=== PATIENT | male | born 1970 | race Hispanic/Latino ===

== ENCOUNTER 2017-06-29 22:59 | Emergency (ER) | payer SELFPAY ==
[~2017-06-29] VITALS: Ht 162.6 cm; Wt 67.0 kg
[~2017-06-29 22:59] MED LIST: NO CURRENT MEDS
[2017-06-29 23:10] VITALS: BP 130/60; PULSE 85; RESP 17; O2SAT 99
--- NOTE | 2017-06-29 23:15 | ED.REPORT ---
HPI-General Illness Date of Service Jun 29, 2017 ED Provider: Sekou Sanchez DO Pt is an otherwise healthy 47 year old male who presents to the ED via EMS for difficulty breathing onset prior to arrival. He c/o associated anxiety and stress. He denies cough and SOB. Pt reports that he was a former smoker. The pt was watching TV when he felt like he was unable to breath. Nursing Notes Stated Complaint: ANXIETY, SHORTNESS OF BREATH Chief Complaint: Respiratory Distress Nursing Notes Reviewed: Yes Allergies: Coded Allergies: Contrast Media (Unverified Allergy, Severe, SNEEZING,ITCHING,FACIAL SWELLING,SOB, 05/06/15) Miscellaneous Medications ([No Current Meds]) General Time Seen by MD: 23:14 Chief Complaint Breathing problem Hx Obtained From: Patient, EMS Arrived By: Ambulance Sudden in Onset?: Yes Onset Occurred: Just prior to arrival Symptom Duration: Duration unknown Severity: Current: No pain currently Severity: Maximum: No pain Recent Healthcare: No recent doctor visit, No recent hospitalization Similar Sx Previous: No Past Medical History Past Medical History Umbilical and bilateral inguinal hernia Past Surgical History Denies Family History Denies Smoking History Former Smoker Social History Alcohol Use: "Social" Ambulatory Status Independent Review of Systems + difficulty breathing Full Review of Systems Respiratory: Denies: Non-productive cough, Shortness of breath Psychiatric: Reports: Anxiety, Stress Complete sys rev & neg: except as marked. Physical Exam Vital Signs Vital Signs Date Time Temp Pulse Resp B/P Pulse Ox O2 Delivery O2 Flow Rate FiO2 06/30/17 03:49 70 15 98 Room Air 06/30/17 02:21 73 14 106/65 98 Room Air 06/30/17 01:34 82 16 127/66 97 Room Air 06/30/17 00:10 36.8 88 22 133/63 95 Room Air 06/29/17 23:10 36.8 85 17 130/60 99 Room Air Initial VS: Reviewed Head / Eyes: Atraumatic, Normocephalic Neck: Supple, Full range of motion Respiratory: Breath sounds normal, Clear to auscultation, No respiratory distress Abdomen / GI: Soft, Non-tender Extremities: Vascular intact, Neuro intact Skin: Warm, Dry, No cyanosis Neurologic: Alert, Oriented, Nonfocal Psychiatric: Mood/affect normal, Behavior normal General/Constitutional: Awake, Alert, No acute distress Behavior: Positive: Anxious Head / Eyes: Atraumatic, Normocephalic Cardiovascular: Heart rate NL, Regular rhythm, Heart sounds NL PERC met. Interpretation & Diagnostics Lab Results Interpretation Result Diagram: 06/30/17 0101 06/30/17 0101 Test 06/30/17 01:01 06/30/17 03:05 White Blood Count 8.6th/mm3 (3.8-10.1) Red Blood Count 4.45mil/mm3 (4.40-5.80) Hemoglobin 13.4g/dL (13.8-17.2) Hematocrit 39.7% (41.0-50.0) Mean Corpuscular Volume 89.2fL (81-100) Mean Corpuscular Hemoglobin 30.1pg (27.0-35.0) Mean Corpuscular Hemoglobin Concent 33.8% (32.0-37.0) Red Cell Distribution Width 12.6% (12.3-15.4) Platelet Count 344bil/L (150-400) Neutrophils (%) (Auto) 65.5% (40-74) Lymphocytes (%) (Auto) 20.5% (14-46) Monocytes (%) (Auto) 11.6% (4-12) Eosinophils (%) (Auto) 1.7% (0-5) Basophils (%) (Auto) 0.6% (0-3) D-Dimer < 0.50mg/L FEU (<0.50) Sodium Level 137mEq/L (134-144) Potassium Level 4.0mEq/L (3.5-5.2) Chloride Level 101mEq/L (97-108) Carbon Dioxide Level 21mmol/L (18-29) Blood Urea Nitrogen 19mg/dL (6-24) Creatinine 0.81mg/dL (0.76-1.27) Estimat Glomerular Filtration Rate 110mL/min (>59) Glucose Level 108mg/dL (60-99) Calcium Level 8.7mg/dL (8.5-10.1) Total Bilirubin 0.3mg/dL (0.0-1.2) Aspartate Amino Transf (AST/SGOT) 13U/L (0-50) Alanine Aminotransferase (ALT/SGPT) 14U/L (0-44) Alkaline Phosphatase 66U/L (25-150) Total Protein 6.8g/dL (6.4-8.4) Albumin 4.1g/dL (3.4-5.0) Hold Shrestha Top Tube Received (Received) Troponin T 0.010ug/L (0.0-0.011) ECG Interpretation ECG Interpretation: Sinus rhythm with a rate of 76 Benign repol No reciprocol changes or signs of DC Time: 00:47 Interpreted by: ED physician X-Ray Chest Interpretation Chest Xray Interpretation: No infiltrates No pneumothorax No pulmonary edema View: Portable, 1 view Interpretation / Wet Read by: Wet read ED physician Re-Eval/Medical Decision Med Decision/Clinical Course 47-year-old male presents with classic anxiety and associated tightness in his chest. He is very worked up about a new job as well as family. His heart score is 0. Pulmonary emboli rule out criteria have been met. PE and acute coronary syndrome very unlikely based on history and physical. EKG shows sinus rhythm with normal benign early repolarization. No reciprocal changes or evidence of ischemia or infarction or injury pattern. D-dimer was negative. Chest x-ray was normal. A single dose of lorazepam was given with prompt relief of symptoms. Assessment anxiety with chest pain. Plan I will place him on hydroxyzine as needed for anxiety symptoms. Routine sedative warnings. We will get a 12 troponin that is normal based on his heart score is safely discharged with outpatient follow-up. He will not drive tonight she is receive sedating medications. Source of Hx: Old records Counseled Regarding: Diagnosis, Lab results, Need for follow-up, When/why to return to ED Discharge & Departure Primary Impression: Anxiety Additional Impression: Chest pain Chest pain type: chest pain on breathing Qualified Code: R07.1 - Chest pain on breathing Disposition: Home Discharge Condition All VS Reviewed: Yes Condition: Stable Patient Instructions: Anxiety (GEN), Chest Pain (ED) Additional Instructions: The EKG, chest x-ray and electrocardiogram were normal. Laboratory work is normal. Blood clot blood test was negative. Blood clot and acute coronary syndrome essentially ruled out. You are suffering from anxiety. First off do not drive tonight as you have received sedating medications. I would like you to take hydroxyzine 1 every 8 hours for severe anxiety breakthrough symptoms. Call your doctor tomorrow morning for a follow-up appointment. There are other antianxiety medications that you can take. The hydroxyzine can be sedating severe do not drive, operate machinery work or take any other sedatives or alcohol taking the hydroxyzine. Do not drive today as you have received the lorazepam. Return if any problems or any new or worrisome symptoms. Referrals: [facility] Scribe Attestation Portions of this note were transcribed by Camila Lord. I, Dr. Sanchez personally performed the history, physical exam and medical decision-making; I reviewed and confirmed the accuracy of the information in the transcribed note. Signed by : Nathan Covarrubias, 06/29/17. copies to: [facility] Sekou Sanchez DO Jun 29, 2017 23:15 Camila Miller Jun 30, 2017 00:19
[2017-06-30] MEDS ORDERED: LORazepam 1 mg Tablet PO ONE (00:05)
[2017-06-30 00:10] VITALS: BP 133/63; PULSE 88; RESP 22; O2SAT 95
[2017-06-30 01:13] LABS: BASOPHILS % (AUTO) 0.6 % (0-3); EOSINOPHILS % (AUTO) 1.7 % (0-5); MONOCYTES % (AUTO) 11.6 % (4-12); Mean Corpuscular Hemoglobin 30.1 pg (27.0-35.0); Mean Corpuscular Volume 89.2 fL (81-100); NEUTROPHILS % (AUTO) 65.5 % (40-74); Platelet Count 344 bil/L (150-400)
[2017-06-30 01:34] VITALS: BP 127/66; PULSE 82; RESP 16; O2SAT 97
[2017-06-30 01:36] LABS: TROPONIN T 0.01 ug/L (0.0-0.011)
[2017-06-30 02:21] VITALS: BP 106/65; PULSE 73; RESP 14; O2SAT 98
[2017-06-30 03:49] VITALS: PULSE 70; RESP 15; O2SAT 98
--- NOTE | 2017-06-30 07:43 | DRSVH ---
PROCEDURE: X-RAY CHEST, TWO VIEWS ([id number]) INDICATIONS: short of breath TECHNIQUE: 2 views of the chest were acquired. COMPARISON: None. FINDINGS: Surgical changes and devices: None. Lungs and pleura: No pleural effusions or pneumothorax. Lungs are clear. Mediastinum: Mediastinal contours are normal. Heart size is normal. Bones and chest wall: No suspicious bony abnormalities. Soft tissues appear unremarkable. IMPRESSION: No radiographic evidence of acute cardiopulmonary pathology. Dictated by: Familia Elder M.D. on 06/30/2017 at 7:41 Approved by: Familia Elder M.D. on 06/30/2017 at 7:41
== END 2017-06-30 03:48 | disposition home or self-care (01) ==
LOC: SED 22:59
DX: F41.9 Anxiety disorder, unspecified (principal); R07.1 Chest pain on breathing; Z87.891 Personal history of nicotine dependence; Z91.041 Radiographic dye allergy status